=== PATIENT | male | born 1940 | race Two or more races ===

== ENCOUNTER 2016-11-30 10:18 | Outpatient (CLI) | payer MEDICARE, OTHER | END 2016-11-30 10:19 | disposition home or self-care (01) | DX: E79.0 Hyperuricemia without signs of inflammatory arthritis and tophaceous disease (principal); I10 Essential (primary) hypertension; N52.9 Male erectile dysfunction, unspecified; N40.1 Benign prostatic hyperplasia with lower urinary tract symptoms; M54.2 Cervicalgia; K57.90 Diverticulosis of intestine, part unspecified, without perforation or abscess without bleeding; G47.30 Sleep apnea, unspecified ==

== ENCOUNTER 2016-12-08 08:00 | Outpatient (CLI) | payer MEDICARE, OTHER | END 2016-12-08 23:59 | DX: R94.6 Abnormal results of thyroid function studies (principal) ==

== ENCOUNTER 2017-09-02 11:02 | Emergency (ER) | payer MEDICARE, OTHER ==
[2017-09-02 11:09] VITALS: BP 134/83
--- NOTE | 2017-09-02 12:45 | ED Physician Documentation ---
History of Present Illness - Stated complaint Stated Complaint: FLU SYMPTOMS - Chief complaint Chief Complaint: General - History obtained from History obtained from: Patient - History of Present Illness Timing: Other (2 days of purulent nasal drainage and sinus pressure now with increasing productive cough with green sputum and mild shortness of breath but no fevers. He does have body aches.) Review of Systems Constitutional: reports: Myalgias, Fatigue. denies: Fever, Chills Ears: denies: Ear pain, Drainage/discharge Nose: reports: Rhinorrhea / runny nose, Congestion, Sinus pressure / pain Throat: denies: Sore throat Cardiac: denies: Chest pain / pressure Respiratory: reports: Dyspnea, Cough. denies: Hemoptysis, Wheezing GI: denies: Abdominal Pain PD PAST MEDICAL HISTORY - Past Medical History Cardiovascular: None Respiratory: None, Sleep apnea Endocrine/Autoimmune: None GI: None : None HEENT: None Psych: None Musculoskeletal: None Derm: None - Past Surgical History Past Surgical History: Yes General: Colonoscopy HEENT: Other - Present Medications Home Medications: Ambulatory Orders Medication Instructions Recorded Confirmed Aspirin [Aspir 81] 81 mg PO DAILY 08/31/15 09/02/17 Finasteride [Proscar] 5 mg PO DAILY PRN 08/31/15 09/02/17 Tamsulosin [Flomax] 0.4 mg ORAL DAILY 08/31/15 09/02/17 Ibuprofen [Advil] 1 cap PO DAILY PRN 09/22/15 09/02/17 Albuterol Sulfate [Proventil Hfa 1 - 2 puffs IH Q4H PRN #1 09/02/17 Inhaler] hfa.aer.ad Amoxicillin 500 mg PO TID #30 capsule 09/02/17 guaiFENesin/CODEINE [Robitussin AC] 5 - 10 ml PO Q6H PRN #120 ml 09/02/17 - Allergies Allergies/Adverse Reactions: Allergies Allergy/AdvReac Type Severity Reaction Status Date / Time acetaminophen [From Percocet] Allergy Mild Itching Verified 09/02/17 11:08 oxycodone HCl * Allergy Mild Itching Verified 09/02/17 11:08 [From Percocet] - Social History Does the pt smoke?: No Smoking Status: Never smoker Does the pt drink ETOH?: No Does the pt have substance abuse?: No - Immunizations Immunizations are current?: Yes - POLST Patient has POLST: No PD ED PE NORMAL - Vitals Vital signs reviewed: Yes - General General: Alert and oriented X 3, No acute distress - HEENT HEENT: PERRL, EOMI, Ears normal, Moist mucous membranes, Pharynx benign - Neck Neck: Supple, no meningeal sign, No bony TTP - Cardiac Cardiac: RRR, No murmur - Respiratory Respiratory: No respiratory distress, Other (Wheezy throughout without focal findings) - Abdomen Abdomen: Non tender - Neuro Neuro: Alert and oriented X 3, Normal speech - Psych Psych: Normal mood, Normal affect Results - Vitals Vitals: Vital Signs - 24 hr 09/02/17 11:06 Temperature 36.3 C L Heart Rate 76 Respiratory 18 Rate Blood Pressure 134/83 H O2 Saturation 95 Oxygen O2 Source Room air - Labs Labs: Laboratory Tests 09/02/17 11:12 Influenza A (Rapid) Negative Influenza B (Rapid) Negative Influenza Types A,B Ag - - Rads (name of study) 2v chest Radiology: EMP read contemporaneously (Discoid atelectasis and tortuous aorta similar to prior exam.) PD MEDICAL DECISION MAKING - ED course ED course: 76-year-old gentleman with sinusitis, also wheezy long without focal findings or findings on chest x-ray. Given advanced age and purulent drainage she is treated with antibiotics for the sinusitis. Departure - Departure Disposition: 01 Home, Self Care Clinical Impression: Sinusitis Qualifiers: Sinusitis location: maxillary Chronicity: acute Recurrence: recurrent Qualified Code(s): J01.01 - Acute recurrent maxillary sinusitis Condition: Good Record reviewed to determine appropriate education?: Yes Instructions: ED Sinusitis Abx Tx Prescriptions: Albuterol Sulfate [Proventil Hfa Inhaler] 1 - 2 puffs IH Q4H PRN #1 hfa.aer.ad PRN Reason: Cough Amoxicillin 500 mg PO TID #30 capsule guaiFENesin/CODEINE [Robitussin AC] 5 - 10 ml PO Q6H PRN #120 ml PRN Reason: Cough Comments: Call your doctor to arrange a follow-up appointment, make the next available appointment. In the interim, return anytime if worse or if new symptoms develop. Your blood pressure was elevated today on check into the emergency department. This does not mean that you have hypertension, it is a common phenomenon to come to the emergency department and have elevated blood pressure. I recommend that you see your primary care physician within the week to have it rechecked when you are feeling better.
--- NOTE | 2017-09-02 13:10 | XRAY Preliminary Report ---
Exam: XR CHEST 2 VIEW PA/LAT IMPRESSION: 1. Scattered bilateral areas of diskoid atelectasis. 2. Moderate aortic tortuosity, similar to the prior exam. [facility] SITE ID: [id number]
--- NOTE | 2017-09-02 13:13 | XRAY Report ---
EXAM: CHEST RADIOGRAPHY EXAM DATE: 09/02/2017 12:59 PM. CLINICAL HISTORY: Cough. COMPARISON: Chest x-ray 02/24/2016. TECHNIQUE: 2 views. FINDINGS: Lungs/Pleura: No pleural effusion or pneumothorax. Diskoid atelectasis within the right hilar region, left lung base as well as left mid lung. Mediastinum: Normal heart size with aortic tortuosity. Other: None. IMPRESSION: 1. Scattered bilateral areas of diskoid atelectasis. 2. Moderate aortic tortuosity, similar to the prior exam. [facility] Referring Provider Line: [phone] SITE ID: [id number]
== END 2017-09-02 13:27 | disposition home or self-care (01) ==
LOC: ED 11:02
DX: J01.01 Acute recurrent maxillary sinusitis (principal); R03.0 Elevated blood-pressure reading, without diagnosis of hypertension; R06.2 Wheezing; Z79.82 Long term (current) use of aspirin
CPT/HCPCS: 71020; 87275; 87276; 99283; 99284

== ENCOUNTER 2018-03-06 11:26 | Day surgery (SDC) | payer MEDICARE, OTHER ==
[2018-03-06] MEDS ORDERED: LACTATED RINGERS 1,000 ML IV ONE ×2 (12:08→15:00)
[2018-03-06] MEDS ORDERED: MIDAZOLAM 2 MG/2 ML VIAL IVP ONE (13:00)
[2018-03-06] MEDS ORDERED: fentaNYL 100 MCG/2 ML VIAL IVP ONE (13:00)
[2018-03-06 16:21] VITALS: BP 152/88
== END 2018-03-06 11:27 | disposition home or self-care (01) ==
LOC: SDS 11:26
PROVIDERS: ATTEND Internal Medicine
PROC: 0DBL8ZX Excision of Transverse Colon, Via Natural or Artificial Opening Endoscopic, Diagnostic (ICD-10-PCS; principal; 2018-03-06 12:30)
DX: Z12.11 Encounter for screening for malignant neoplasm of colon (principal); K57.30 Diverticulosis of large intestine without perforation or abscess without bleeding; D12.3 Benign neoplasm of transverse colon; G47.33 Obstructive sleep apnea (adult) (pediatric); E66.9 Obesity, unspecified; Z68.36 Body mass index [BMI] 36.0-36.9, adult
CPT/HCPCS: 45385; J7120

== ENCOUNTER 2018-10-07 08:00 | Outpatient (CLI) | payer MEDICARE, OTHER | END 2018-10-07 23:59 | disposition home or self-care (01) | LOC: LAB.WCP 08:00 | PROVIDERS: ATTEND Family Medicine | DX: E34.0 Carcinoid syndrome (principal) | CPT/HCPCS: 81599; 83497 ==

== ENCOUNTER 2019-11-13 18:47 | Emergency (ER) | payer MEDICARE, OTHER ==
[2019-11-13 19:37] LABS: BASOPHILS % (AUTO) 0.3 %; EOSINOPHILS % (AUTO) 0.1 %; HGB - HEMOGLOBIN 14.6 g/dL (14.0-18.0); LYMPHOCYTES # (AUTO) 0.6 10^3/uL (1.5-3.5); LYMPHOCYTES % (AUTO) 6.2 %; MEAN CORPUSCULAR HEMOGLOBIN 27.7 pg (27.0-31.0); MEAN CORPUSCULAR HGB CONC 32.5 g/dL (32.0-36.0); MEAN PLATELET VOLUME 9.8 fL (7.4-11.4); MONOCYTES # (AUTO) 0.3 10^3/uL (0.0-1.0); MONOCYTES % (AUTO) 3.5 %; NEUTROPHILS # (AUTO) 8.7 10^3/uL (1.5-6.6); NEUTROPHILS % (AUTO) 89.5 %; PLT - PLATELET COUNT 179 10^3/uL (130-450); RED BLOOD COUNT 5.28 10^6/uL (4.70-6.10); RED CELL DISTRIBUTION WIDTH 14.3 % (12.0-15.0); WHITE BLOOD COUNT 9.7 x10^3/uL (4.8-10.8)
[2019-11-13 19:39] LABS: BILIRUBIN,URINE NEGATIVE (NEGATIVE); GLUCOSE, URINE (UA) NEGATIVE (NEGATIVE); KETONES,URINE (UA) NEGATIVE (NEGATIVE); LEUKOCYTE ESTERASE, URINE NEGATIVE (NEGATIVE); NITRITE,URINE NEGATIVE (NEGATIVE); OCCULT BLOOD,URINE TRACE-INTA (NEGATIVE); PROTEIN,URINE NEGATIVE (NEGATIVE); UROBILINOGEN,URINE 1 (NORMAL) E.U./dL (NORMAL)
[2019-11-13 19:46] LABS: CLARITY,URINE CLEAR (CLEAR)
[2019-11-13 19:50] LABS: BILIRUBIN,TOTAL 0.5 mg/dL (0.2-1.0); CALCIUM 9.5 mg/dL (8.5-10.3); CREATININE 1.3 mg/dL (0.6-1.2)
--- NOTE | 2019-11-13 21:02 | ED Physician Documentation ---
PD HPI ABD PAIN - Stated complaint Stated Complaint: N/V, ABD PX - Chief complaint Chief Complaint: Abd Pain - History obtained from History obtained from: Patient (79-year-old gentleman with chronic recurrent up-and-down abdominal pain presents with lower abdominal pain starting tonight with chills and nausea. Also some urinary incontinence. He has a known large prostate. No history of abdominal surgeries. He is kind of a vague historian and all over the place noting that he has been having pains on and off for as long as he can remember and has had upper and lower endoscopies that per him were negative. That said obviously the fever and chills are new tonight.) Review of Systems Ten Systems: 10 systems reviewed and negative Constitutional: reports: Fever, Chills Throat: denies: Sore throat Cardiac: denies: Chest pain / pressure, Palpitations Respiratory: denies: Dyspnea, Cough GI: denies: Abdominal Swelling, Vomiting, Constipation, Diarrhea, Hematemesis, Bloody / black stool PD PAST MEDICAL HISTORY - Past Medical History Cardiovascular: None Respiratory: None, Sleep apnea Endocrine/Autoimmune: None GI: None : Benign prostate hypertrophy HEENT: None Psych: None Musculoskeletal: None Derm: None - Past Surgical History Past Surgical History: Yes General: Colonoscopy HEENT: Other - Present Medications Home Medications: Ambulatory Orders Medication Instructions Recorded Confirmed Aspirin [Aspir 81] 81 mg PO DAILY 08/31/15 03/06/18 Finasteride [Proscar] 5 mg PO DAILY PRN 08/31/15 03/06/18 Tamsulosin [Flomax] 0.4 mg ORAL DAILY 08/31/15 03/06/18 Amox/Clav 875/125 [Augmentin] 1 each PO Q12H #19 tablet 11/14/19 - Allergies Allergies/Adverse Reactions: Allergies Allergy/AdvReac Type Severity Reaction Status Date / Time oxycodone HCl * Allergy Mild Itching Verified 03/05/18 13:37 [From Percocet] ciprofloxacin [From Cipro] AdvReac Unknown Verified 03/06/18 11:50 indomethacin [From Indocin] AdvReac Unknown Verified 03/06/18 11:50 - Social History Does the pt smoke?: No Smoking Status: Never smoker Does the pt drink ETOH?: No Does the pt have substance abuse?: No - Immunizations Immunizations are current?: Yes - POLST Patient has POLST: No PD ED PE NORMAL - Vitals Vital signs reviewed: Yes - General General: Alert and oriented X 3, No acute distress - HEENT HEENT: PERRL, EOMI - Neck Neck: Supple, no meningeal sign, No bony TTP - Cardiac Cardiac: RRR, No murmur - Respiratory Respiratory: No respiratory distress, Clear bilaterally - Abdomen Abdomen: Normal bowel sounds, Soft, Non tender - Back Back: No CVA TTP, No spinal TTP - Derm Derm: Normal color, Warm and dry - Extremities Extremities: No edema, No calf tenderness / cord - Neuro Neuro: Alert and oriented X 3, Normal speech Results - Vitals Vitals: Vital Signs - 24 hr 11/13/19 11/13/19 11/14/19 19:12 23:10 01:32 Temperature 38.9 C H 37.0 C 36.9 C Heart Rate 112 H 86 81 Respiratory 16 18 18 Rate Blood Pressure 150/61 H 130/68 124/70 O2 Saturation 92 94 94 Oxygen O2 Source Room air - Labs Labs: Laboratory Tests 11/13/19 11/13/19 11/13/19 19:20 19:31 19:31 WBC 9.7 RBC 5.28 Hgb 14.6 Hct 44.9 MCV 85.0 MCH 27.7 MCHC 32.5 RDW 14.3 Plt Count 179 MPV 9.8 Neut # (Auto) 8.7 H Lymph # (Auto) 0.6 L [place] # (Auto) 0.3 Eos # (Auto) 0.0 Baso # (Auto) 0.0 Absolute Nucleated RBC 0.00 Nucleated RBC % 0.0 Sodium 135 Potassium 4.1 Chloride 102 Carbon Dioxide 21 Anion Gap 12.0 BUN 21 H Creatinine 1.3 H Estimated GFR (MDRD) 53 L Glucose 148 H Calcium 9.5 Total Bilirubin 0.5 AST 27 ALT 25 Alkaline Phosphatase 66 Total Protein 8.0 Albumin 4.0 Globulin 4.0 Albumin/Globulin Ratio 1.0 Lipase 26 Urine Color YELLOW Urine Clarity CLEAR Urine pH 6.0 Ur Specific [place] 1.020 Urine Protein NEGATIVE Urine Glucose (UA) NEGATIVE Urine Ketones NEGATIVE Urine Occult Blood TRACE-INTA Urine Nitrite NEGATIVE Urine Bilirubin NEGATIVE Urine Urobilinogen 1 (NORMAL) Ur Leukocyte Esterase NEGATIVE Ur Microscopic Review NOT INDICATED Urine Culture Comments NOT INDICATED PD MEDICAL DECISION MAKING - ED course ED course: 79yo male with abd pain, seems like a chronic on again/off again process, now worse with fever. No tenderness. WBC and UA nl. Care to Dr Mendoza at shift change (10pm) pending CT result. Departure - Departure Disposition: Home, Self Care Clinical Impression: Diverticulitis of gastrointestinal tract Condition: Good Instructions: ED Diverticulitis Follow-Up: John Garcia MD [Primary Care Provider] - Prescriptions: Amox/Clav 875/125 [Augmentin] 1 each PO Q12H #19 tablet Discharge Date/Time: 11/14/19 01:38
[2019-11-13] MEDS ORDERED: IOVERSOL 320 100 ML VIAL IVP ONE ×2 (21:14→22:39)
--- NOTE | 2019-11-13 22:41 | CT Report ---
Reason: Lower abd pain Procedure Date: 11/13/2019 Accession Number: [id number] / [id number] Procedure: CT - Abdomen/Pelvis W CPT Code: Final Report FULL RESULT: EXAM: CT ABDOMEN AND PELVIS WITH CONTRAST. EXAM DATE: 11/13/2019 10:06 PM. CLINICAL HISTORY: Lower abdomen pain. COMPARISONS: ABDOMEN/PELVIS W/O 06/20/2016 5:03 PM. ABDOMEN/PELVIS W/ 09/08/2015 10:18 AM. TECHNIQUE: Routine helical CT imaging was performed through the abdomen and pelvis. IV contrast: 100 mL OPTIRAY 320. Enteric contrast: No. Reconstructions: Coronal and sagittal. In accordance with CT protocol optimization, one or more of the following dose reduction techniques were utilized for this exam: automated exposure control, adjustment of mA and/or KV based on patient size, or use of iterative reconstructive technique. FINDINGS: Exam is limited due to motion artifact since the patient vomited on the table. Lung bases: Mild bibasilar atelectasis. Liver: Low density solid appearing mass seen superiorly in the right hepatic lobe which appears to have peripheral nodular enhancement, measures 1.6 x 1.2 cm. There appears to be a hypervascular mass here back in 2014, most likely a benign liver hemangioma. Diffuse fatty liver. Gallbladder: Unremarkable. Bile ducts: Unremarkable. Pancreas: Unremarkable. Spleen: Unremarkable. Adrenals: Unremarkable. Kidneys: No hydronephrosis. Small left renal cyst. Bowel: Motion artifact limits the exam. Mild descending and sigmoid colon diverticulosis. Adjacent to the proximal sigmoid colon, there appears to be scarring and fistulas connecting sigmoid colon to sigmoid colon and sigmoid colon to small bowel. There appears to be a small amount of gas within a fistula. There is adjacent stranding which could represent acute on chronic diverticulitis/inflammation versus all scarring/chronic diverticulitis. Inflammation and inflammatory mass-like opacities were present adjacent to the sigmoid colon on the prior CT from 2015. No definite free fluid or abscess seen. A few transverse colon diverticula. No dilated bowel loops are seeing to suggest obstruction. Pelvis: The bladder is unremarkable. Enlarged prostate measuring 4.8 cm in the AP dimension. Vasculature: Motion artifact limited. No definite acute findings are seen. Bones: No acute bone findings are seen. IMPRESSION: 1. Motion artifact limits exam. Mild descending and sigmoid colon diverticulosis. Adjacent to the proximal sigmoid colon, there appears to be scarring and fistulas connecting sigmoid colon to sigmoid colon and sigmoid colon to small bowel. There appears to be a small amount of gas within a fistula. There is adjacent stranding which could represent acute on chronic diverticulitis/inflammation versus all scarring/chronic diverticulitis. Inflammation and inflammatory masslike opacities were present adjacent to the sigmoid colon on the prior CT from 2016. No definite free fluid or abscess seen. 2. Otherwise, see above. [facility]
[2019-11-13] MEDS ORDERED: ONDANSETRON 4 MG/2 ML VIAL IVP STA (22:49)
[2019-11-14] MEDS ORDERED: AMOX/CLAV 875 MG/125 MG TABLET PO STA (01:28)
[2019-11-14 01:32] VITALS: BP 124/70
== END 2019-11-14 01:38 | disposition home or self-care (01) ==
LOC: ED 18:47
DX: K57.32 Diverticulitis of large intestine without perforation or abscess without bleeding (principal)
CPT/HCPCS: 36415; 74177; 80053; 81003; 83690; 85025; 96374; 99284; A9270; Q9967; 81001; 87086

== ENCOUNTER 2021-01-05 07:55 | Outpatient (CLI) | payer MEDICARE, OTHER | END 2021-01-05 07:56 | disposition home or self-care (01) | LOC: DI 07:55 | PROVIDERS: ATTEND Nurse Practitioner | DX: I51.7 Cardiomegaly (principal) | CPT/HCPCS: 93306 ==

== ENCOUNTER 2021-02-04 08:00 | Outpatient (CLI) | payer MEDICARE, OTHER ==
--- NOTE | 2021-02-04 21:09 | XRAY Report ---
PROCEDURE: Lumbar Spine 2 View INDICATIONS: LOW BACK PAIN TECHNIQUE: 3 views of the lumbar spine were acquired. COMPARISON: None. FINDINGS: Bones: 5 [id number] vertebrae are present. Multilevel lower lumbar facet arthropathy. Mild dege nerative anterolisthesis of L4 on L5. This measures 9 mm. There is subtly calcified disc bulge at L4- L5 with probable foraminal narrowing. No vertebral body compression fractures. No suspicious bony le sions. Soft tissues: Overlying bowel gas pattern is normal. No suspicious soft tissue calcifications. IMPRESSION: Multilevel lumbar facet arthropathy. Mild degenerative anterolisthesis of L4 on L5. Reviewed by: Johnson Alegria MD on 02/04/2021 9:08 PM PDT Approved by: Johnson Alegria MD on 02/04/2021 9:08 PM PDT Station ID: [id number]
== END 2021-02-04 23:59 | disposition home or self-care (01) ==
LOC: DI.N 08:00
PROVIDERS: ATTEND Family Medicine
DX: M43.16 Spondylolisthesis, lumbar region (principal); M51.26 Other intervertebral disc displacement, lumbar region

== ENCOUNTER 2021-02-21 06:58 | Outpatient (CLI) | payer MEDICARE, OTHER ==
[2021-02-21 12:51] LABS: PSA FREE 0.22 ng/mL (0.16-2.81)
[2021-02-21 12:52] LABS: PSA TOTAL 1.8 ng/mL (0.000-2.000)
[2021-02-21 13:05] LABS: BUN - BLOOD UREA NITROGEN 15 mg/dL (6-20); CALCIUM 9.3 mg/dL (8.5-10.3); CARBON DIOXIDE - CO2 23 mmol/L (21-32); CHLORIDE 105 mmol/L (101-111); CREATININE 1.2 mg/dL (0.6-1.2); GFR - MDRD 58 (>89); GLUCOSE 129 mg/dL (70-100); POTASSIUM 4.2 mmol/L (3.5-5.0); SODIUM 139 mmol/L (135-145); URIC ACID 8.1 mg/dL (2.6-7.2)
[2021-02-21 13:17] LABS: CRP - C-REACTIVE PROTEIN < 1.0 mg/dL (0-1.0)
[2021-02-21 13:40] LABS: ESTIMATED AVERAGE GLUCOSE 146 mg/dL (70-100); HEMOGLOBIN A1c% 6.7 % (4.27-6.07)
== END 2021-02-21 23:59 | disposition home or self-care (01) ==
LOC: LAB.WCP 06:58
PROVIDERS: ATTEND Family Medicine
DX: I51.9 Heart disease, unspecified (principal); R73.01 Impaired fasting glucose; N42.9 Disorder of prostate, unspecified; M10.9 Gout, unspecified; R79.82 Elevated C-reactive protein (CRP)
CPT/HCPCS: 36415; 80048; 83036; 84153; 84154; 84550; 85651; 86140

== ENCOUNTER 2021-09-05 08:16 | Outpatient (CLI) | payer MEDICARE, OTHER ==
[2021-09-05] MEDS ORDERED: IOPAMIDOL-300 50 ML VIAL ONE (08:27)
[2021-09-05] MEDS ORDERED: IOPAMIDOL-300 100 ML VIAL ONE (08:27)
[2021-09-05 09:27] LABS: ALBUMIN 3.9 g/dL (3.2-5.5); BILIRUBIN,TOTAL 0.8 mg/dL (0.2-1.0); CALCIUM 9.6 mg/dL (8.5-10.3)
[2021-09-05] MEDS ORDERED: IOPAMIDOL-300 50 ML VIAL PO ONE (09:58)
[2021-09-05] MEDS ORDERED: IOPAMIDOL-300 100 ML VIAL IVP ONE (09:59)
--- NOTE | 2021-09-05 12:40 | CT Report ---
PROCEDURE: Abdomen/Pelvis W INDICATIONS: LEFT LOWER QUAD ABD PAIN CONTRAST: IV CONTRAST: Isovue 300 ml: 100 PO CONTRAST: Isovue 300 ml50 TECHNIQUE: After the administration of IV and oral contrast, 5 mm thick sections acquired from the diaphragms to the symphysis. 5 mm thick coronal and sagittal reformats were acquired. For radiation dose reducti on, the following was used: automated exposure control, adjustment of mA and/or kV according to jermaine ent size. COMPARISON: 11/13/2019 FINDINGS: Image quality: Excellent. ABDOMEN: Lung bases: Mild dependent atelectasis. Heart size is normal. Solid organs: Mild to moderate hepatic steatosis. Normal gallbladder. Nondilated biliary tree. Mayra l pancreas. Normal size spleen. No adrenal nodules. Normal kidneys. No hydronephrosis or intrarenal c alculus. Peritoneum and bowel: Several diverticula seen in the descending colon. Within the left lower quadran t, there is trace acute inflammatory change and stellate scarring with fistulous connection between l oops of sigmoid and descending colon. There is adjacent vascularity. No free fluid or free air. No oc casional diverticular seen throughout the rest of the colon. Small bowel loops are normal without emeka dence of obstruction. Normal stomach. Nodes and vessels: No retroperitoneal or mesenteric adenopathy by size criteria. Aorta and inferior vena cava are normal in size. Mild aortic calcification. Miscellaneous: No ventral hernias. PELVIS: Genitourinary: Bladder wall thickness is normal. Moderate prostatomegaly. Miscellaneous: No inguinal hernias or adenopathy. Bones: No suspicious bony lesions. No vertebral body compression fractures. IMPRESSION: 1. 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 2. No extraluminal gas or abscess formation. 3. Mild to moderate hepatic steatosis. 4. Moderate prostatomegaly. Reviewed by: Grisel Deras MD on 09/05/2021 12:38 PM PST Approved by: Grisel Deras MD on 09/05/2021 12:38 PM PST Station ID: [id number]
== END 2021-09-05 08:17 | disposition home or self-care (01) ==
LOC: LAB 08:16
PROVIDERS: ATTEND Family Medicine
DX: R10.32 Left lower quadrant pain (principal); L98.8 Other specified disorders of the skin and subcutaneous tissue; K52.9 Noninfective gastroenteritis and colitis, unspecified; K76.0 Fatty (change of) liver, not elsewhere classified; N40.0 Benign prostatic hyperplasia without lower urinary tract symptoms
CPT/HCPCS: 36415; 74177; 80053; Q9967

== ENCOUNTER 2021-12-21 08:27 | Outpatient (CLI) | payer MEDICARE, OTHER ==
[2021-12-21 12:29] LABS: ESTIMATED AVERAGE GLUCOSE 137 mg/dL (70-100); HEMOGLOBIN A1c% 6.4 % (4.27-6.07)
[2021-12-21 12:30] LABS: CREATININE,URINE 92.2 mg/dL; MICROALBUM/CREATININE RATIO,UR 59.7 ug/mg (<30.0); MICROALBUMIN,URINE 5.5 mg/dL (0-300.0)
[2021-12-21 12:33] LABS: CALCIUM 9.4 mg/dL (8.5-10.3); CREATININE 1.1 mg/dL (0.6-1.2); POTASSIUM 4.1 mmol/L (3.5-5.0)
== END 2021-12-21 08:28 | disposition home or self-care (01) ==
LOC: LAB.N 08:27
PROVIDERS: ATTEND Physician Assistant
DX: E11.9 Type 2 diabetes mellitus without complications (principal)
CPT/HCPCS: 36415; 80048; 82043; 82570; 83036

== ENCOUNTER 2022-05-26 10:11 | Outpatient (CLI) | payer MEDICARE, OTHER ==
[2022-05-26 11:12] LABS: BASOPHILS % (AUTO) 0.5 %; EOSINOPHILS # (AUTO) 0.2 10^3/uL (0.0-0.7); EOSINOPHILS % (AUTO) 1.9 %; HCT - HEMATOCRIT 44.7 % (42.0-52.0); HGB - HEMOGLOBIN 14.5 g/dL (14.0-18.0); LYMPHOCYTES # (AUTO) 2.3 10^3/uL (1.5-3.5); LYMPHOCYTES % (AUTO) 28.4 %; MEAN CORPUSCULAR HEMOGLOBIN 28.3 pg (27.0-31.0); MEAN CORPUSCULAR HGB CONC 32.4 g/dL (32.0-36.0); MEAN CORPUSCULAR VOLUME 87.3 fL (80.0-94.0); MEAN PLATELET VOLUME 9.9 fL (7.4-11.4); MONOCYTES # (AUTO) 0.5 10^3/uL (0.0-1.0); MONOCYTES % (AUTO) 5.8 %; NEUTROPHILS # (AUTO) 5.2 10^3/uL (1.5-6.6); NEUTROPHILS % (AUTO) 63.2 %; PLT - PLATELET COUNT 205 10^3/uL (130-450); RED BLOOD COUNT 5.12 10^6/uL (4.70-6.10); RED CELL DISTRIBUTION WIDTH 13.7 % (12.0-15.0); WHITE BLOOD COUNT 8.2 x10^3/uL (4.8-10.8)
[2022-05-26 11:38] LABS: THYROID STIMULATING HORMONE 0.55 uIU/mL (0.34-5.60)
[2022-05-26 11:47] LABS: ALBUMIN 3.8 g/dL (3.2-5.5); ALKALINE PHOSPHATASE 66 IU/L (42-121); ALT ALANINE AMINOTRANSFERASE 22 IU/L (10-60); AST ASPARTATE AMINOTRANSFERASE 28 IU/L (10-42); BILIRUBIN,TOTAL 0.7 mg/dL (0.2-1.0); BUN - BLOOD UREA NITROGEN 13 mg/dL (6-20); CALCIUM 9.6 mg/dL (8.5-10.3); CARBON DIOXIDE - CO2 26 mmol/L (21-32); CHLORIDE 104 mmol/L (101-111); CHOL/HDL RATIO 4.4 (<5.0); CHOLESTEROL 163 mg/dL; CREATININE 1.1 mg/dL (0.6-1.2); GFR - MDRD 64 (>89); GLUCOSE 104 mg/dL (70-100); HDL CHOLESTEROL 37 mg/dL; LDL CHOLESTEROL,CALCULATED 105 mg/dL; LDL/HDL RATIO 2.8 (<3.6); POTASSIUM 4.3 mmol/L (3.5-5.0); SODIUM 140 mmol/L (135-145); TOTAL PROTEIN 7.7 g/dL (6.7-8.2); TRIGLYCERIDES 106 mg/dL; VLDL CHOLESTEROL 21 mg/dL
[2022-05-26 12:31] LABS: ESTIMATED AVERAGE GLUCOSE 131 mg/dL (70-100); HEMOGLOBIN A1c% 6.2 % (4.27-6.07)
--- NOTE | 2022-05-26 13:29 | XRAY Report ---
PROCEDURE: Wrist 3 View LT INDICATIONS: WRIST PAIN LEFT,RT HIP PAIN TECHNIQUE: 3 views of the wrist were acquired. COMPARISON: None FINDINGS: Bones: Moderate first CMC and STT osteoarthritis. No acute fracture or dislocation. Soft tissues: No suspicious soft tissue calcifications. IMPRESSION: Arthrosis of the proximal thumb. No acute radiographic abnormality. If there is high concern for occu lt injury, consider repeat radiography or cross-sectional imaging. Reviewed by: Wali Parikh MD on 05/26/2022 1:28 PM PDT Approved by: Wali Parikh MD on 05/26/2022 1:28 PM PDT Station ID: [id number]
--- NOTE | 2022-05-26 18:34 | XRAY Report ---
PROCEDURE: Hip w/Pelvis 2-3V RT INDICATIONS: WRIST PAIN LEFT,RT HIP PAIN TECHNIQUE: AP pelvis with lateral view(s) of the right hip(s). COMPARISON: None. FINDINGS: Bones: No fractures or dislocations. Pelvic ring appears intact. No suspicious bony lesions. Lowe r lumbar spine degenerative changes Soft tissues: The visualized bowel gas pattern is normal. No suspicious soft tissue calcifications. IMPRESSION: Lower lumbar spine degenerative changes. Right hip joint space is preserved. Reviewed by: Yakov Zapien MD on 05/26/2022 5:33 PM [facility] Approved by: Yakov Zapien MD on 05/26/2022 5:33 PM [facility] Station ID: [id number]
== END 2022-05-26 10:12 | disposition home or self-care (01) ==
LOC: DI 10:11
PROVIDERS: ATTEND Physician Assistant
DX: M25.551 Pain in right hip (principal); M47.816 Spondylosis without myelopathy or radiculopathy, lumbar region; M18.12 Unilateral primary osteoarthritis of first carpometacarpal joint, left hand; E11.9 Type 2 diabetes mellitus without complications; N40.1 Benign prostatic hyperplasia with lower urinary tract symptoms
CPT/HCPCS: 36415; 80053; 80061; 83036; 83721; 84153; 84443; 85025

== ENCOUNTER 2022-06-27 08:00 | Outpatient (CLI) | payer MEDICARE, OTHER ==
--- NOTE | 2022-06-27 17:01 | XRAY Report ---
PROCEDURE: Hip 2 View RT INDICATIONS: RIGHT HIP PAIN TECHNIQUE: 4 views of the hip were acquired. COMPARISON: 05/26/2022 FINDINGS: Bones: No fractures or dislocations. Mild to moderate right hip joint osteoarthritic changes are ag ain seen. No hip fracture or dislocation. No evidence of avascular necrosis of femoral head. No suspi cious bony lesions. The visualized pelvic ring appears intact. Soft tissues: No suspicious soft tissue calcifications or masses. 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 No fracture or dislocation. No evidence of avascular necrosis. Reviewed by: Efe Chen MD on 06/27/2022 4:59 PM PDT Approved by: Efe Chen MD on 06/27/2022 4:59 PM PDT Station ID: [id number]
== END 2022-06-27 23:59 | disposition home or self-care (01) ==
LOC: DI.WOS 08:00
PROVIDERS: ATTEND Physician Assistant Surgical
DX: M16.11 Unilateral primary osteoarthritis, right hip (principal)

== ENCOUNTER 2022-07-03 08:00 | Outpatient (CLI) | payer MEDICARE, OTHER ==
--- NOTE | 2022-07-04 14:31 | XRAY Report ---
PROCEDURE: Wrist 3 View LT INDICATIONS: LEFT WRIST PAIN TECHNIQUE: 3 views of the wrist were acquired. COMPARISON: X-ray left wrist, 05/26/2022 FINDINGS: Bones: No fractures or dislocations. No suspicious bony lesions. Mild degenerative joint disease a t the radiocarpal joint, triscaphe joint and the first carpometacarpal joint. Soft tissues: No suspicious soft tissue calcifications. IMPRESSION: Mild degenerative joint disease. Reviewed by: Keely Akins MD on 07/04/2022 2:29 PM PDT Approved by: Keely Akins MD on 07/04/2022 2:29 PM PDT Station ID: [id number]
== END 2022-07-03 23:59 | disposition home or self-care (01) ==
LOC: DI.WOS 08:00
PROVIDERS: ATTEND Physician Assistant Surgical
DX: M19.032 Primary osteoarthritis, left wrist (principal)

== ENCOUNTER 2022-07-08 13:54 | Outpatient (CLI) | payer MEDICARE, OTHER | END 2022-07-08 23:59 | disposition home or self-care (01) | LOC: LAB.N 13:54 | PROVIDERS: ATTEND Registered Nurse | DX: N30.01 Acute cystitis with hematuria (principal) | CPT/HCPCS: 87086; 87181 ==

== ENCOUNTER 2022-07-21 08:00 | Outpatient (CLI) | payer MEDICARE, OTHER | END 2022-07-21 23:59 | disposition home or self-care (01) | LOC: LAB.N 08:00 | PROVIDERS: ATTEND Registered Nurse | DX: N30.01 Acute cystitis with hematuria (principal) | CPT/HCPCS: 87086 ==

== ENCOUNTER 2022-07-25 08:00 | Outpatient (CLI) | payer MEDICARE, OTHER ==
--- NOTE | 2022-07-25 17:25 | XRAY Report ---
PROCEDURE: Hip 2 View RT INDICATIONS: RIGHT HIP PAIN TECHNIQUE: 2 views of the hip were acquired. COMPARISON: 06/27/2022 FINDINGS: Bones: No fractures or dislocations. Mild to moderate right hip joint osteoarthritic changes are ag ain seen with joint space narrowing, subchondral sclerosis and tiny marginal osteophyte formation. No evidence of avascular necrosis of femoral head. No suspicious bony lesions. The visualized pelvic r ing appears intact. Soft tissues: No suspicious soft tissue calcifications or masses. 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 No fracture or dislocation. No evidence of avascular necrosis. Reviewed by: Efe Chen MD on 07/25/2022 5:23 PM PST Approved by: Efe Chen MD on 07/25/2022 5:23 PM PST Station ID: [id number]
== END 2022-07-25 08:01 | disposition home or self-care (01) ==
LOC: DI.WOS 08:00
PROVIDERS: ATTEND Physician Assistant Surgical
DX: M16.11 Unilateral primary osteoarthritis, right hip (principal)

== ENCOUNTER 2022-07-29 11:09 | Outpatient (CLI) | payer MEDICARE, OTHER ==
--- NOTE | 2022-07-29 13:10 | XRAY Report ---
PROCEDURE: Chest 2 View X-Ray INDICATIONS: BRONCHITIS,ACUTE TECHNIQUE: 2 view(s) of the chest. COMPARISON: 09/02/2017 FINDINGS: Surgical changes and devices: None. Lungs and pleura: No pleural effusions or pneumothorax. Lungs are clear. Mediastinum: Mediastinal contours are normal. Heart size is normal. Bones and chest wall: No suspicious bony abnormalities. Age-appropriate degenerative changes are see n. Soft tissues appear unremarkable. IMPRESSION: No focal infiltrates are seen. If there is strong clinical concern for a developing or new pulmonary process, please consider a shor t-term follow-up 2 view chest series, performed in deep inspiration. Reviewed by: Reinaldo Garcia MD on 07/29/2022 12:09 PM [facility] Approved by: Reinaldo Garcia MD on 07/29/2022 12:09 PM [facility] Station ID: [id number]
== END 2022-07-29 11:10 | disposition home or self-care (01) ==
LOC: DI 11:09
PROVIDERS: ATTEND Family Medicine
DX: J20.9 Acute bronchitis, unspecified (principal)

== ENCOUNTER 2022-08-25 08:00 | Outpatient (CLI) | payer MEDICARE, OTHER ==
[2022-08-25 12:48] LABS: BILIRUBIN,URINE NEGATIVE (NEGATIVE); GLUCOSE, URINE (UA) NEGATIVE (NEGATIVE); KETONES,URINE (UA) NEGATIVE (NEGATIVE); LEUKOCYTE ESTERASE, URINE NEGATIVE (NEGATIVE); NITRITE,URINE NEGATIVE (NEGATIVE); OCCULT BLOOD,URINE NEGATIVE (NEGATIVE); PROTEIN,URINE NEGATIVE (NEGATIVE); UROBILINOGEN,URINE 0.2 (NORMAL) E.U./dL (NORMAL)
[2022-08-25 12:57] LABS: BACTERIA,URINE None Seen /HPF (None Seen); CLARITY,URINE CLEAR (CLEAR); RBC,URINE None Seen /HPF (0-5); SQUAMOUS EPITHELIAL CELL,UR NONE SEEN (<= Few); WBC,URINE 0-3 /HPF (0-3)
== END 2022-08-25 23:59 | disposition home or self-care (01) ==
LOC: LAB.WCP 08:00
PROVIDERS: ATTEND Physician Assistant
DX: R10.30 Lower abdominal pain, unspecified (principal)
CPT/HCPCS: 81001; 87086

== ENCOUNTER 2022-09-12 10:43 | Outpatient (CLI) | payer MEDICARE, OTHER ==
[2022-09-12] MEDS ORDERED: iohexoL-300 100 ML VIAL ONE (10:47)
[2022-09-12] MEDS ORDERED: DIATRIZOATE MEGLU/DIATRIZO SOD 30 ML BOTTLE PO ONE ×2 (10:47→20:48)
[2022-09-12 11:10] LABS: BILIRUBIN,URINE NEGATIVE (NEGATIVE); GLUCOSE, URINE (UA) NEGATIVE (NEGATIVE); KETONES,URINE (UA) NEGATIVE (NEGATIVE); LEUKOCYTE ESTERASE, URINE NEGATIVE (NEGATIVE); NITRITE,URINE NEGATIVE (NEGATIVE); OCCULT BLOOD,URINE NEGATIVE (NEGATIVE); PROTEIN,URINE NEGATIVE (NEGATIVE); UROBILINOGEN,URINE 0.2 (NORMAL) E.U./dL (NORMAL)
[2022-09-12 11:15] LABS: ALBUMIN 3.7 g/dL (3.2-5.5); ALBUMIN/GLOBULIN RATIO 0.8 (1.0-2.2); BILIRUBIN,TOTAL 0.5 mg/dL (0.2-1.0); CALCIUM 9.6 mg/dL (8.5-10.3); CREATININE 1.2 mg/dL (0.6-1.2); POTASSIUM 3.9 mmol/L (3.5-5.0); TOTAL PROTEIN 8.1 g/dL (6.7-8.2)
[2022-09-12 11:17] LABS: BACTERIA,URINE None Seen /HPF (None Seen); CLARITY,URINE CLEAR (CLEAR); RBC,URINE 0-5 /HPF (0-5); SQUAMOUS EPITHELIAL CELL,UR RARE Squamous (<= Few); WBC,URINE 0-3 /HPF (0-3)
[2022-09-12 11:22] LABS: CREATININE,URINE 97.3 mg/dL; MICROALBUM/CREATININE RATIO,UR 32.9 ug/mg (<30.0); MICROALBUMIN,URINE 3.2 mg/dL (0-300.0)
[2022-09-12 13:20] LABS: ESTIMATED AVERAGE GLUCOSE 134 mg/dL (70-100); HEMOGLOBIN A1c% 6.3 % (4.27-6.07)
[2022-09-12] MEDS ORDERED: iohexoL-300 100 ML VIAL IVP ONE (20:47)
--- NOTE | 2022-09-13 15:59 | CT Report ---
PROCEDURE: ABDOMEN/PELVIS W INDICATIONS: ABD PAIN CONTRAST: Omni 300 100ml TECHNIQUE: After the administration of IV and oral contrast, 5 mm thick sections acquired from the diaphragms to the symphysis. 5 mm thick coronal and sagittal reformats were acquired. For radiation dose reducti on, the following was used: automated exposure control, adjustment of mA and/or kV according to jermaine ent size. COMPARISON: 09/05/2021. 11/13/2019, 06/20/2016. FINDINGS: Image quality: Excellent. ABDOMEN: Lung bases: Dependent atelectasis in posterior aspect of bilateral lung bases are seen. Heart size i s mildly enlarged, no pericardial effusion. Solid organs: Liver and spleen are normal in size and enhancement. Mild hepatic steatosis is seen. Gallbladder is within normal limits. Biliary system is non dilated. Pancreas enhances normally. No adrenal nodules. Kidneys demonstrate normal size and enhancement, without hydronephrosis. Peritoneum and bowel: There is no bowel obstruction. No gastric or small bowel wall thickening. Sigmo id diverticulosis is again seen with wall thickening involving distal descending colon and proximal s igmoid colon in left lower quadrant abdomen with chronic-appearing fat stranding within left lower qu adrant mesentery. No extraluminal air or drainable abscess collection is noted. No peritoneal free fl uid or free air. Nodes and vessels: No retroperitoneal or mesenteric adenopathy by size criteria. Aorta and inferior vena cava are normal in size. Mild atherosclerotic calcifications in the abdominal aorta is seen. Miscellaneous: No ventral hernias. PELVIS: Genitourinary: Bladder wall thickness is normal. Enlarged prostate gland is again seen with mild ma ss effect on floor of urinary bladder. Miscellaneous: No inguinal hernias or adenopathy. Bones: No suspicious bony lesions. No vertebral body compression fractures. IMPRESSION: 1. Persistent chronic-appearing inflammatory changes involving left lower quadrant abdomen likely rep resent chronic inflammation and scarring secondary to chronic or recurrent diverticulitis. No abscess collection. No signs of perforation. No free fluid or free air. 2. Mild to moderate hepatic steatosis unchanged from prior study. 3. Enlarged prostate gland with mass effect on floor of urinary bladder. No bladder wall abnormality. Reviewed by: Efe Chen MD on 09/13/2022 3:58 PM PST Approved by: Efe Chen MD on 09/13/2022 3:58 PM PST Station ID: [id number]
== END 2022-09-12 10:44 | disposition home or self-care (01) ==
LOC: LAB 10:43
PROVIDERS: ATTEND Physician Assistant
DX: K57.30 Diverticulosis of large intestine without perforation or abscess without bleeding (principal); E11.9 Type 2 diabetes mellitus without complications; R10.32 Left lower quadrant pain; N40.0 Benign prostatic hyperplasia without lower urinary tract symptoms; K76.0 Fatty (change of) liver, not elsewhere classified
CPT/HCPCS: 36415; 74177; 80053; 81001; 82043; 82570; 83036; Q9963; Q9967; 87086

== ENCOUNTER 2023-07-25 10:26 | Outpatient (CLI) | payer MEDICARE, OTHER ==
--- NOTE | 2023-07-25 10:59 | XRAY Report ---
PROCEDURE: Chest 2 View X-Ray INDICATIONS: WHEEZING TECHNIQUE: 2 views of the chest were acquired. COMPARISON: Chest x-ray 07/29/2022. FINDINGS: Surgical changes and devices: None. Lungs and pleura: No pleural effusions or pneumothorax. Lungs are clear. Mild bibasilar atelectas is. Mediastinum: Mediastinal contours appear normal. Heart size is normal. Bones and chest wall: No suspicious bony lesions. Overlying soft tissues appear unremarkable. IMPRESSION: No acute cardiopulmonary process. Reviewed by: Ish Bah MD on 07/25/2023 10:58 AM [facility] Approved by: Ish Bah MD on 07/25/2023 10:58 AM [facility] Station ID: [id number]
== END 2023-07-25 10:27 | disposition home or self-care (01) ==
LOC: DI 10:26
PROVIDERS: ATTEND Nurse Practitioner
DX: R06.2 Wheezing (principal)

== ENCOUNTER 2023-12-13 14:37 | Outpatient (CLI) | payer MEDICARE, OTHER ==
--- NOTE | 2023-12-13 15:26 | Sleep Patient Instructions ---
Sleep Center Visit Summary - Patient Visit Information Reason for Visit: Initial consultation - Patient Instructions Additional Instructions: You will continue with BiPAP therapy with pressure set at 12/6 cmH2O with 6 cmH2O pressure support. A supply prescription will be updated with your DME. I have added an order to have you repeat sleep study to get new baseline of your sleep apnea. We will see you in office after the sleep study is completed to go over those results. We encourage you to continue to try to lose weight. Please follow up with the sleep care office after sleep study. - Clinic Information Contact: [facility] [address] [place] [address] [email or web address] T: [phone]
--- NOTE | 2023-12-13 15:34 | SLEEP CARE CONSULTATION ---
Information from patient questionnaire entered by Julio Cesar Wallace. I have reviewed and concur with the information entered by Julio Cesar Wallace. This document represents the service I personally performed and the decisions made by me, Karen Norris ARNP. History of Present Illness Service Date and Time: 12/13/2023 1437 Reason for Visit: New patient, Previously diagnosed sleep apnea, sleep apnea on CPAP therapy (BiPAP) Chief Complaint: reports: Unrefreshed sleep, Fatigue Date of Onset: MANY YEARS Usual bedtime: 2100 Time it takes to fall asleep: 10-15MINS Observed to quit breathing while asleep: No Sleeps alone due to snoring: No Number of times waking at night: 3-4 Reasons for waking at night: reports: Bathroom Toss, Turn, or Twitch while sleeping: Yes Recalls having dreams: Yes Usually gets out of bed at: 7-9 Feels refreshed in the morning: No Morning headache: Yes Sleepy or fatigued during the day: No Ever fallen asleep while driving: Yes Prior sleep studies: Yes Additional HPI information: ANNIE ROCK was previously diagnosed to have extremely severe, AHI 101.6, obstructive sleep apnea-hypopnea syndrome in 2007 as documented in chart note when he was seen on 11/13/2013 and comes in today to establish care for BIPAP therapy. [facility]. He says he has been diagnosed with narcolepsy and obstructive sleep apnea in the past. He got a new BiPAP about 2-3 years ago. He has not had follow ups to check that his pressure setting were appropriate. He complains of daytime sleepiness and unrefreshed sleep. He gets some oral dryness when using his BiPAP. - Parasomnia Symptoms Walks in sleep: No Talks in sleep: No Ever felt weak in the knees when startled or emotional: Yes Problems with memory or concentration: No CPAP Compliance Data - Data Reviewed with Patient Average duration of nightly device use: 7 hours 35 minutes Compliance rate %: 94 (09/14/2023-12/12/2023; 87/90 days used) Current pressure setting (cmH2O): 08/22 with 6 pressure support Average residual AHI: 4.1 Central apnea: 1.2 Obstructive apnea: 2.1 Hypopnea: 0.5 Average large leak: 0.1 L/min Compliance data discussion: He has a ResMed AirCurve 10 VAuto BiPAP. [facility] He is using a medium nasal cushion, ReMed Mirage FX wide. He does have a backup mask if needed. Subjective Patient concerns: reports: dry mouth, nose, throat (dry throat). denies: aerophagia, mask discomfort, air blowing in eyes, mask leak noise, condensation in mask/hose, nasal congestion, epistaxis Observed to snore while using device: No Current pressure setting perceived as: comfortable On therapy, patient: reports: sleeping better, more rested overall, other (been more tired recently). denies: drowsiness while driving Initial [place] Sleepiness Scale score: 15 (12/13/23) Past Medical History Past Medical History: reports: Diabetes, Impotence Social History The patient's occupation is a RE. Patient is and lives in [place]. Have you smoked in the past 12 months: No Alcohol use: Yes Alcohol amount and frequency: occasional sip of wine Caffeine use: Yes Caffeine amount and frequency: 1-2 cups of coffee in morning Family History Family history of sleep disordered breathing: No Allergies and Home Medications Known drug allergies: Yes (as listed) Drug allergies reviewed: Yes Home medication list reviewed: Yes (he forgot list; will update in EMR as able) Allergy and home medication list: Allergies oxycodone HCl * [From Percocet] Allergy (Mild, Verified 03/05/18 13:37) Itching ciprofloxacin [From Cipro] Adverse Reaction (Verified 03/06/18 11:50) Unknown indomethacin [From Indocin] Adverse Reaction (Verified 03/06/18 11:50) Unknown Review of Systems Weight gain over past 5 years: 10-15 Cardiovascular: reports: leg or foot swelling. denies: high blood pressure Gastrointestinal: reports: abdominal pain. denies: heartburn Urinary: reports: incontinence Neurological: denies: headaches Psychiatric: denies: anxiety, depression Ear/Nose/Throat: reports: nasal congestion, sinus problems. denies: tonsillectomy Endocrine: reports: unexplained weakness Musculoskeletal: reports: joint pain, neck pain, back pain Physical Exam Vital signs obtained and entered by: JULIO CESAR Steven MA Blood Pressure: 172/85 (LEFT ARM) Cuff size: regular Heart Rate: 74 O2 Saturation: 95 Height: 5 ft 4 in Weight: 223 lb 12.8 oz Body Mass Index: 38.4 BMI Classification: Obese Neck circumference: 18 Heart: regular rate and rhythm, murmur Lungs: clear bilaterally Impression and Plan 1. Obstructive Sleep Apnea-Hypopnea Syndrome, extremely severe, with good treatment compliance and good apnea control. On BiPAP therapy, the patient has better sleep quality and is more rested overall. He has had more daytime fatigue and some nasal dryness. His primary doctor sent him here for checkup of his sleep apnea therapy. His BiPAP settings appear to be controlling his sleep apnea well with significant improvement of his sleep apnea. He does say that he has more arthritic and other pains that interrupt his sleep. I advised him to adjust humidity on his machine as needed to decrease nasal dryness. Patient's apnea severity and rationale for treatment to reduce apnea, improve sleep quality and reduce cardiovascular and cerebrovascular events was reviewed. I also reviewed the benefit of consistent device use of BiPAP for diabetes. Patient's last sleep study was done before 2007. I think it would be chaudhry to get an update to baseline of his sleep apnea. He says he feels he can go a night without his BiPAP for the night of the study. I will order a polysomnography and follow-up with him after it has resulted. I obtained agreement to proceed. The pathophysiology of obstructive sleep apnea-hypopnea syndrome was discussed with the patient and health risks of cardiovascular and cerebrovascular disease if not treated. 2. Obesity, unspecified. Currently patients BMI is 38.4. Obesity increases the risk of apnea, BiPAP pressure requirements and overall health risks especially cardiovascular and diabetes. Thus patient is advised to lose weight. * Continue BiPAP pressure at 12/6 cmH2O with 6 cmH2O pressure support * PSG to verify diagnosis and severity * Update supply prescription * Notify me if snoring with mask or feeling that the pressure is too much or too little * Attempt to lose weight * Call this office if any problems using BiPAP * Return for follow up after sleep study, or sooner if concerns arise Counseling Topics: Spare mask, Weight loss health impact Prescriptions: Device supplies Follow up with Sleep Care in: other (after PSG) Plan: PSG and follow up Visit Type: In Office Time Spent with Patient (minutes): 41 Provider Statement: I spent 100% of the Face to Face Visit with the patient with greater than 50% spent counseling the patient and coordination of care.
[2023-12-13 15:41] VITALS: BP 172/85; O2SAT 95
== END 2023-12-13 14:38 | disposition home or self-care (01) ==
LOC: SC 14:37
PROVIDERS: ATTEND Nurse Practitioner Family
DX: G47.33 Obstructive sleep apnea (adult) (pediatric) (principal); E66.9 Obesity, unspecified; Z68.38 Body mass index [BMI] 38.0-38.9, adult
CPT/HCPCS: 99203; G0463; 99212

== ENCOUNTER 2023-12-26 19:38 | Outpatient (CLI) | payer MEDICARE, OTHER | END 2023-12-26 19:39 | disposition home or self-care (01) | LOC: SC 19:38 | PROVIDERS: ATTEND Nurse Practitioner Family | DX: G47.33 Obstructive sleep apnea (adult) (pediatric) (principal); G47.31 Primary central sleep apnea; G47.61 Periodic limb movement disorder; E66.9 Obesity, unspecified; Z68.38 Body mass index [BMI] 38.0-38.9, adult | CPT/HCPCS: 95810 ==

== ENCOUNTER 2024-01-22 09:31 | Outpatient (CLI) | payer MEDICARE, OTHER ==
--- NOTE | 2024-01-22 09:59 | Sleep Patient Instructions ---
Sleep Center Visit Summary - Patient Visit Information Reason for Visit: Sleep study follow-up - Patient Instructions Additional Instructions: You were here for follow up of sleep study which showed moderate obstructive sleep apnea. You will be continued on BiPAP therapy with pressure at 16/2 cmH2O. You should follow up with sleep care in 12 months. You may contact us sooner for any questions or concerns. - Clinic Information Contact: [facility] [address] [place] [id number] [email or web address] T: [phone]
--- NOTE | 2024-01-22 10:06 | SLEEP CARE CONSULTATION ---
Information from patient questionnaire entered by Moon Wallace. I have reviewed and concur with the information entered by Moon Wallace. This document represents the service I personally performed and the decisions made by , Karen Norris ARNP. History of Present Illness Service Date and Time: 01/22/2024930 Initial [place] Sleepiness Scale score: 15 (12/13/23) Current [place] Sleepiness Scale score: 16 (01/22/24) Additional HPI information: ANNIE ROCK returns for follow up and results of the recently performed polysomnography. He was previously diagnosed with extremely severe obstructive sleep apnea, AHI 101.6. The sleep study showed moderate central and obstructive sleep apnea with an average AHI of 16.8 and destiny oxygen saturation of 82%. There was also evidence of Nicola Sim breathing and severe PLMs contributing to sleep fragmentation. I explained the pathophysiology behind obstructive sleep apnea. We then spent quite a bit of time discussing different treatment options. For mild obstructive sleep apnea, surgery and oral appliance are alternatives to nasal CPAP therapy but in moderate or severe cases, nasal CPAP is the most effective and reliable treatment. Patient will continue with BiPAP set at 12/6 cmH20 with 6 cmH2O pressure support. Patient counseled not drink alcohol less than 4 hours before bedtime as it can increase snoring and apnea. Patient was cautioned about risks of drowsy driving until sleepiness symptoms resolve. Patient denies drowsy driving. Sleep Study - Results Type of Sleep Study: Polysomnography (COMPLETED 12/26/23) Prior sleep studies: Yes Polysomnography/Home Sleep Study results: IMPRESSION: The quality of the study is good. The patient had reduced sleep efficiency due to awakenings during the night. And corporate secretary awakening. The sleep architecture was abnormal for sleep fragmentation and reduced amount of time spent in REM and slow wave sleep (N3). Respiratory monitoring showed moderate obstructive sleep apnea-hypopnea (AHI = 16.8) associated with frequent arousals, oxyhemoglobin desaturation and mild hypoxia (destiny oxygen saturation of 82%). There was also evidence of Nicola- Sim respiration. The respiratory events occurred predominantly during supine sleep (supine AHI = 49.5; non-supine = 12.16). Snore was loud in intensity. There was severe periodic leg movement of sleep contributing to the sleep fragmentation. Cardiac rhythm was normal sinus rhythm without significant arrhythmia. No abnormal behavior (parasomnia) observed during the night. Allergies and Home Medications Known drug allergies: Yes (as listed) Drug allergies reviewed: Yes Home medication list reviewed: Yes (no changes) Allergy and home medication list: Allergies oxycodone HCl * [From Percocet] Allergy (Mild, Verified 01/17/24 08:57) Itching ciprofloxacin [From Cipro] Adverse Reaction (Verified 01/17/24 08:57) Unknown indomethacin [From Indocin] Adverse Reaction (Verified 01/17/24 08:57) Unknown Review of Systems Review of systems same as previous: Yes (NO CHANGE) Physical Exam Vital signs obtained and entered by: MOON Steven MA Blood Pressure: 136/80 (RIGHT ARM) Cuff size: regular Heart Rate: 83 O2 Saturation: 95 Height: 5 ft 4 in Weight: 222 lb 3.2 oz Body Mass Index: 38.1 BMI Classification: Obese Impression and Plan 1. Central and Obstructive Sleep Apnea-Hypopnea Syndrome, moderate, with lowest oxygen saturation of 82%. He is currently on a BiPAP with settings at 12/6 cmH2O with 6 cmH2O pressure support. Positive pressure therapy can continue to benefit his diabetes. Patient's apnea severity and rationale for treatment to reduce apnea, improve sleep quality and reduce cardiovascular and cerebrovascular events was reviewed. He will follow up with us next year. He will let us know if he needs further assistance. 2. Periodic limb movement, severe, that did not fragment patients sleep. Periodic limb movement of sleep (PLMS) is characterized by episodes of repetitive limb movements that occur during sleep and usually involve the lower limbs. The etiology is unknown. Sleep hygiene methods can also improve sleep as well as lifestyle changes such as regular exercise. Patient was advised that no treatment is needed at this time. If symptoms increase, then further evaluation is indicated. 3. Hypoxemia, mild, with a destiny oxygen saturation of 82% and 13.8 minutes spent under 90%. The baseline oxygen saturation was normal with an average oxygen saturation of 91%. 4. Obesity, unspecified. Currently patients BMI is 38.1. Obesity increases the risk of apnea, BiPAP pressure requirements and overall health risks especially cardiovascular and diabetes. Thus patient is advised to lose weight. * Continue BiPAP pressure at 12/6 cmH2O with 6 cmH2O pressure support * Notify me if snoring with mask or feeling that the pressure is too much or too little * Attempt to lose weight * Call this office if any problems using BiPAP * Return for follow up in 12 months, or sooner if concerns arise Counseling Topics: Weight loss health impact Follow up with Sleep Care in: 1 year Visit Type: In Office Time Spent with Patient (minutes): 20 Provider Statement: I spent 100% of the Face to Face Visit with the patient with greater than 50% spent counseling the patient and coordination of care.
[2024-01-22 10:08] VITALS: BP 136/80; O2SAT 95
== END 2024-01-22 09:32 | disposition home or self-care (01) ==
LOC: SC 09:31
PROVIDERS: ATTEND Nurse Practitioner Family
DX: G47.39 Other sleep apnea (principal); G47.61 Periodic limb movement disorder; R09.02 Hypoxemia; E66.9 Obesity, unspecified; Z68.31 Body mass index [BMI] 31.0-31.9, adult
CPT/HCPCS: 99213; G0463; 99212